=== PATIENT | male | born 1935 | race Caucasian/White ===

== ENCOUNTER 2019-07-06 10:48 | Day surgery (SDC) | payer OTHER, MEDICARE ==
[2019-07-09] MEDS ORDERED: LOSARTAN POTAS100 MG PO (10:56)
[2019-07-09] MEDS ORDERED: FINA5 PO (10:56)
[2019-07-09] MEDS ORDERED: METO25 PO (10:56)
[2019-07-09] MEDS ORDERED: TAMS.4ER PO (10:56)
[2019-07-09] MEDS ORDERED: Aspirin EC81 MG PO (10:56)
[2019-07-09] MEDS ORDERED: ZYRTEC10 M1 PO (10:57)
== END 2019-07-06 22:44 | disposition home or self-care (01) ==
LOC: RAD 10:48 → MIR 10:48 → RAD 22:44
DX: R13.10 Dysphagia, unspecified (principal)
CPT/HCPCS: 74230; 92611

== ENCOUNTER 2019-07-19 11:52 | Day surgery (SDC) | payer OTHER ==
[~2019-07-19] VITALS: Ht 167.6 cm; Wt 76.9 kg
[~2019-07-19 11:52] MED LIST: Aspirin EC81 MG PO; FINA5 PO; LOSARTAN POTAS100 MG PO; METO25 PO; TAMS.4ER PO; ZYRTEC10 M1 PO
== END 2019-07-19 14:15 | disposition home or self-care (01) ==
LOC: ORSCSDS 11:52
PROVIDERS: Student in an Organized Health Care Education/Training Program
PROC: 0DB58ZX Excision of Esophagus, Via Natural or Artificial Opening Endoscopic, Diagnostic (ICD-10-PCS; principal; 2019-07-19 13:45)
PROC: 0DB68ZX Excision of Stomach, Via Natural or Artificial Opening Endoscopic, Diagnostic (ICD-10-PCS; principal; 2019-07-19 13:45)
PROC: 0DB98ZX Excision of Duodenum, Via Natural or Artificial Opening Endoscopic, Diagnostic (ICD-10-PCS; principal; 2019-07-19 13:45)
DX: R13.10 Dysphagia, unspecified (principal); K29.80 Duodenitis without bleeding; K29.70 Gastritis, unspecified, without bleeding; I12.9 Hypertensive chronic kidney disease with stage 1 through stage 4 chronic kidney disease, or unspecified chronic kidney disease; N18.9 Chronic kidney disease, unspecified; Z87.891 Personal history of nicotine dependence; Z79.899 Other long term (current) drug therapy; Z79.82 Long term (current) use of aspirin
CPT/HCPCS: 88305; 88342; J2704; J7120